=== PATIENT | female | born 1960 | race Caucasian/White ===

== ENCOUNTER 2018-07-20 05:13 | Inpatient (IN) ==
--- NOTE | 2018-06-21 09:37 | Anesthesiology Consultation ---
Date of Service June 21, 2018 Assessment & Plan (1) Encounter for pre-operative examination: Chart Review Chart Review: Acceptable Risk for Surgery and Patient seen in Pre Admission Testing Consults Requested none Note sent to PCP re: elevated A1C and BSG. (06/22). PCP saw patient on 07/12 and increased metformin to 1000mg BID. Patient has also started watching what she eats and exercising regularly. Her BS's have come down from 400's to now being 160s-210s. Has had one reading in 300s since making lifestyle changes. PCP feels she is ok for surgery as long as she continues with dietary change and exercise and increases metformin. Will recheck BS AM day of surgery. Teaching & Discussion Pre-Anesthesia Teaching/Discussion Notes: Instructed NPO after midnight before surgery, except medications with 15 cc of water. Medication instructions provided according to the PAT guidelines. History Surgery Operation Date: 07/20/18 08:50 Proposed Procedures p Right Total Knee Replacement - Adelso Bose MD Height/Weight Height: 5 ft 3 in Weight: 117.2 kg Allergies Allergy/AdvReac Type Severity Reaction Status Date / Time cat dander Allergy Unknown WATERY Verified 06/18/18 08:12 EYES, RUNNY NOSE, SCRATCHY THROAT Medications Home Medications Medication Instructions Recorded Confirmed Last Taken aspirin [Aspir-81] 81 mg PO HS 06/18/18 06/18/18 Unknown bupropion HCl [Wellbutrin SR] 100 mg PO QAM 06/18/18 06/18/18 Unknown citalopram 20 mg PO QAM 06/18/18 06/18/18 Unknown eszopiclone [Lunesta] 2 mg PO HS PRN 06/18/18 06/18/18 Unknown ibuprofen [Advil] 400 mg PO UD PRN 06/18/18 06/18/18 Unknown liraglutide [Victoza 2-Alphonse] 1 dose SUBCUT QPM 06/18/18 06/18/18 Unknown lisinopril 10 mg PO QAM 06/18/18 06/18/18 Unknown lorazepam 0.5 mg PO UD PRN 06/18/18 06/18/18 Unknown multivitamin [Multiple Vitamins] 1 tab PO QPM 06/18/18 06/21/18 Unknown pravastatin 40 mg PO HS 06/18/18 06/18/18 Unknown Past Medical History Medical History Abdominal adhesions Anxiety and depression Diabetes Fatty liver History of diarrhea REPORTS FREQUENT DIARRHEA/NONE CURRENT OR RECENTLY History of fall 2 WEEKS AGO- RIGHT KNEE BUCKLED, HIT HEAD/HAD HEADACHES AFTER (RESOLVED)/D ENIES CONCUSSION (EVALUATED BY PCP OFFICE) Hyperlipidemia Osteoarthritis Sleep apnea CPAP Past Family History Family History Father No problems noted. Mother Family history of uterine cancer Other Family history of breast cancer Past Surgical History Surgical History Family history of reaction to anesthesia MOTHER TROUBLE WAKING UP (NO FURTHER DETAILS) History of abdominal surgery TUMOR AROUND INTESTINES AND OVARY/RESECTION OF History of appendectomy History of bilateral breast reduction surgery History of colonoscopy MOST RECENT THEY WERE UNABLE TO COMPLETE DUE TO SCAR TISSUE/ADHESIONS X4 TOTAL History of ectopic History of gynecologic surgery FALLOPIAN TUBE RECONSTRUCTION History of hysterectomy History of laparoscopy X4 (GYNECOLOGICAL) History of wisdom tooth extraction Past Anesthesia History No Hx of Anesthesia Complications Mother had complications after hysterectomy. Ended up in a coma for a month shortly after. Unsure of the details. Knows that she has alot of health problems. History of PONV No Motion Sickness Screening History of Motion Sickness: Yes (Only on mountains) Social History Smoking Status: Current some day smoker tobacco type: cigarettes Smoking cigarettes per day: "1 OR 2 EVERY OTHER MONTH" Do You Dip or Chew Tobacco: No Hx Alcohol Use: Yes Alcohol type: beer, wine and hard liquor alcohol intake frequency: a few times a month Hx Substance Use: No substance use type: does not use Exercise / Class Metabolic Activity III < 4 Walking/Shop/Light housework (Swim class twice a week. Can climb FOS slowly. Denies CP. Gets mild SOB with stairs. ) Review of Systems Patient denies chest pain, shortness of breath, reflux, cough, wheezing, palpitations. +LOPEZ (mild, only with stairs, not with water aerobics) +joint pain (knees, hands) Physical Exam Vital Signs BP: 124/81 P: 66 R: 14 T: 98.5 SPO2: 99% on RA Constitutional + obese ENMT Thyromental Distance: > or= 3.5 Finger Breadths (4) Mallampati Class: I Neck normal visual inspection, trachea midline and + limited neck extension Respiratory normal respiratory effort Auscultation: lungs clear to auscultation bilaterally Cardiovascular Rate/Rhythm: regular rate and regular rhythm Heart Sounds: no murmur Vessels: no carotid bruit Neurologic moves all extremities Psychiatric Orientation: alert and oriented x 3 Testing Electrocardiogram Date: 06/21/18 Findings: + NSR @ (62) Chest X-Ray Date: 06/21/18 Findings: + NAD FINDINGS: PA and lateral chest radiographs are obtained. No prior studies are available for comparison at the time of dictation. The cardiomediastinal silhouette is unremarkable. The lungs and pleural spaces are clear. There is no pneumothorax. The bony thorax appears intact. IMPRESSION: No active disease in the chest. Laboratory Results 06/21/18 09:57 06/21/18 09:57 Blood Type A Positive 06/21/18 09:57 Antibody Screen NEGATIVE 06/21/18 09:57 PT 10.1 Seconds (9.0-12.0) 06/21/18 09:57 INR 1.0 (0.9-1.1) 06/21/18 09:57 APTT 23.7 Seconds (21.0-31.0) 06/21/18 09:57 Hemoglobin A1c 11.1 % (4.5-5.6) H 06/21/18 09:57
--- NOTE | 2018-06-21 09:46 | PAT Medication Instructions ---
Medication Instructions Date of Service June 21, 2018 Home Medications aspirin [Aspir-81] 81 mg PO HS bupropion HCl [Wellbutrin SR] 100 mg PO QAM citalopram 20 mg PO QAM eszopiclone [Lunesta] 2 mg PO HS PRN ibuprofen [Advil] 400 mg PO UD PRN liraglutide [Victoza 2-Alphonse] 1 dose SUBCUT QPM lisinopril 10 mg PO QAM lorazepam 0.5 mg PO UD PRN multivitamin [Multiple Vitamins] 1 tab PO DAILY pravastatin 40 mg PO HS ASK your surgeon for instructions ibuprofen [Advil] 400 mg PO UD PRN DO NOT take the morning of surgery lisinopril 10 mg PO QAM Take morning of surgery With a small sip of water, OTHERWISE NOTHING TO EAT OR DRINK AFTER MIDNIGHT: bupropion HCl [Wellbutrin SR] 100 mg PO QAM citalopram 20 mg PO QAM lorazepam 0.5 mg PO UD PRN Take evening before surgery aspirin [Aspir-81] 81 mg PO HS eszopiclone [Lunesta] 2 mg PO HS PRN ibuprofen [Advil] 400 mg PO UD PRN liraglutide [Victoza 2-Alphonse] 1 dose SUBCUT QPM lorazepam 0.5 mg PO UD PRN multivitamin [Multiple Vitamins] 1 tab PO DAILY pravastatin 40 mg PO HS Other Notes If you have any questions please call us at [phone] or [phone] or [phone] or [phone]
--- NOTE | 2018-06-21 10:20 | XRay Report ---
TWO VIEW CHEST CLINICAL HISTORY: Preoperative examination. FINDINGS: PA and lateral chest radiographs are obtained. No prior studies are available for compariso n at the time of dictation. The cardiomediastinal silhouette is unremarkable. The lungs and pleural spaces are clear. There is no pneumothorax. The bony thorax appears intact. IMPRESSION: No active disease in the chest. Electronically signed by: Tawanda Moore M.D. 06/21/2018 10:19 AM
[2018-06-21 10:57] LABS: Basophils # (auto) 0.01 K/uL (0-0.2); Basophils % (auto) 0.2 %; Eosinophils % (auto) 2.3 %; Hematocrit (blood only) 41.4 % (37-47); Hemoglobin 14.1 g/dL (12.0-16.0); Immature Granulocytes # (auto) 0.01 K/uL (0.00-0.02); Immature Granulocytes % (auto) 0.2 %; Lymphocytes # (auto) 1.38 K/uL (1.2-3.4); Lymphocytes % (auto) 31.5 %; Mean Corpuscular Hgb Conc 34.1 g/dL (32-36); Mean Corpuscular Volume 86.1 fL (80-100); Mean Platelet Volume 11.6 fL (7.4-10.4); Monocytes # (auto) 0.34 K/uL (0.11-0.59); Monocytes % (auto) 7.8 %; Neutrophils # (auto) 2.54 K/uL (1.4-6.5); Platelet Count 232 K/uL (130-400); RDW Coefficient of Variation 13.1 % (11.5-14.5); RDW Standard Deviation 40.7 fL (36.4-46.3); Red Blood Count 4.81 M/uL (4.2-5.4); White Blood Count 4.38 K/uL (4.8-10.8)
[2018-06-21 11:07] LABS: Partial Thromboplastin Ratio 0.9; Partial Thromboplastin Time 23.7 Seconds (21.0-31.0); Prothrombin Time 10.1 Seconds (9.0-12.0)
[2018-06-21 11:35] LABS: BUN Creatinine Ratio 11.7 (10-20); Calcium 9.2 mg/dl (8.5-10.1); Creatinine Clr Calc Pharmacy 78.7 ml/min; Est GFR (African American) 76.4; Est GFR (Non-African American) 65.9; Potassium 4.6 mmol/L (3.5-5.1)
[2018-06-21 11:40] LABS: Estimated Average Glucose 272 mg/dl; Hemoglobin A1C 11.1 % (4.5-5.6)
[2018-06-21 11:58] LABS: Beta-Hydroxybutyrate 9.15 mg/dl (0.2-2.81)
--- NOTE | 2018-07-14 13:26 | History and Physical Report ---
DATE OF ADMISSION: 07/20/2018 CHIEF COMPLAINT: Bilateral knee pain and discomfort, left side greater than the right. HISTORY OF PRESENT ILLNESS: A 58-year-old female who presents for surgical treatment of her knees. She has a long history of bilateral knee pain and discomfort followed by [facility] in the past. She has been through extensive conservative treatment over the years. She had injections which helped quite a bit and become less successful over time. Pain is global. The more she walks, the more it hurts. It is really limiting her activities. She uses a cane intermittently as a result. She lives by herself and having trouble maintaining any degree of active lifestyle. She would like to proceed with definitive treatment/knee replacement. Of note, we had her scheduled for surgery previously, had rescheduled her due to some diabetes issues. We diagnosed her with diabetes and they have been trying to get her blood glucose under better control. They have been in this some degree and she would like to proceed. PAST MEDICAL HISTORY: 1. Hypertension. 2. Elevated cholesterol. 3. Diabetes. 4. Obesity with a BMI of 46. PAST SURGICAL HISTORY: Previous surgeries include: 1. Appendectomy. 2. Multiple laparoscopies. 3. Tumor removed from her fallopian tubes. 4. Ectopic . 5. Fallopian tube reconstruction. 6. Hysterectomy. 7. [place] teeth surgery. 8. Breast reduction. ALLERGIES: None. CURRENT MEDICINES: 1. Wellbutrin 100 mg a day. 2. Lisinopril 10 mg a day. 3. Citalopram 20 mg a day. 4. Pravastatin 40 mg a day. 5. Victoza. 6. Celebrex. 7. Lorazepam. 8. Lunesta. 9. Baby aspirin. 10. Advil. SOCIAL HISTORY: A 58-year-old female. Lives by herself. Does not smoke. FAMILY HISTORY: Noncontributory. REVIEW OF SYSTEMS: Significant for fairly poorly controlled diabetes. She and her primary care doctor have been working on controlling this over the past month. No history of DVT or PE. No known bleeding problems. PHYSICAL EXAMINATION: GENERAL: Physical examination shows a pleasant middle-aged female, looks to be in pretty good health. HEENT: Benign. NECK: Supple, no lymphadenopathy. LUNGS: Clear to auscultation. HEART: Regular rate and rhythm. ABDOMEN: Soft, nontender, nondistended. EXTREMITIES: Grossly neurovascularly intact except as follows: Examination of both knees reveals patient walks with a waddling gait. She has got a moderate to large soft tissue envelope. Fairly short stature. Examination of the left knee reveals tenderness over the medial joint lines. Small knee effusion. Range of motion 0-125. No instability. No pain with hip motion. She is neurologically intact. Examination of the right knee reveals fairly neutral alignment. Minimal knee effusion. Tender over the medial joint line. Range of motion 0-125. Good straight leg raise. No pain with hip motion. X-RAYS: X-rays of both knees reveal advanced medial compartment arthritis. She has got significant patellofemoral disease as well. She has complete loss of her medial joint space with a little bit of tibial femoral subluxation. She has got osteophytes mostly in the medial compartment. ASSESSMENT: A 58-year-old female, poorly controlled diabetic with advanced bilateral knee degenerative joint disease. She has failed conservative treatment and would like to proceed with knee replacement. We will proceed with one knee at a time. She has been working on getting her blood glucose under better control. They feel like that it has got pretty well optimized. She is at increased risk of infection due to her diabetes and she is aware of that. PLAN: We will proceed with surgical treatment. We are going to proceed with a left knee replacement as that one bothers her most. The risks and benefits of the left total knee replacement were explained to the patient including but not limited to DVT, PE, , infection, neurological injury, vascular injury, bleeding problem, pain, limited range of motion, stiffness, failure to relieve symptoms, incomplete relief of symptoms, need for further surgery in the future, fracture, leg length inequality, nerve palsy, etc. The patient understands and desires to proceed. Informed consent was obtained. We will use insulin sliding scale coverage in the hospital. I did tell her she is at increased risk due to her diabetes, but it sounds like this has been optimized as much as possible. As far as discharge plan, she is hoping to be discharged to home using [facility]. She does live by herself and says she will get some help elsewhere.
--- NOTE | 2018-07-15 22:31 | History and Physical Report ---
DATE OF ADMISSION: 07/20/2018 CHIEF COMPLAINT: Bilateral knee pain and discomfort, right side worse than the left. HISTORY OF PRESENT ILLNESS: This is a 58-year-old female who presents for surgical treatment of her right knee now. She has a long history of bilateral knee pain and discomfort followed by [facility] in the past. She had been through extensive conservative treatment over years. The shots initially helped quite a bit, but they have become less successful. She has not had a shot in a while due to her lack of success. She has become more debilitated by her pain. It is global pain. The more she walks, the more it hurts. It is really limiting her lifestyle. She uses a cane to get around intermittently. She lives by herself and having difficulty maintaining an active lifestyle. She was initially planning on having her left knee done as that was one that was more bothersome initially but the right one has become more bothersome now. She would like to have her right knee replaced. PAST MEDICAL HISTORY: 1. Hypertension. 2. Elevated cholesterol. 3. Diabetes type 2, three years ago. 4. Obesity with a BMI of 46. PAST SURGICAL HISTORY: 1. Appendectomy. 2. Multiple laparoscopies. 3. Tumor removed from the fallopian tubes. 4. Ectopic . 5. Fallopian tube reconstruction. 6. Hysterectomy. 7. [place] teeth surgery. 8. Breast reduction. ALLERGIES: None. CURRENT MEDICINES: 1. Wellbutrin 5 mg. 2. Lisinopril 10 mg. 3. Citalopram 20 mg a day. 4. Pravastatin 40 mg a day. 5. Victoza 1.8 mg a day. 6. Celebrex 100 mg a day. 7. Lorazepam 0.5 mg p.r.n. 8. Lunesta 2 mg p.r.n. 9. Baby aspirin. 10. Advil. SOCIAL HISTORY: A 58-year-old female who lives by herself. She does not smoke. FAMILY HISTORY: Noncontributory. REVIEW OF SYSTEMS: Significant for diabetes. Denies any chest pain or shortness of breath. No history of DVT or PE. Her hemoglobin A1c was 11.1 and over the past month she has been working with her primary care doctors to get this under better control. PHYSICAL EXAMINATION: GENERAL: Reveals a pleasant, middle-aged female. Looks to be in reasonably good health. HEENT: Benign. NECK: Supple. No lymphadenopathy. LUNGS: Clear to auscultation. HEART: Regular rate and rhythm. ABDOMEN: Soft, nontender, nondistended. EXTREMITIES: Grossly neurovascularly intact except as follows: Examination of both knees reveals patient walks a bit of a waddling gait. She has got a moderate to large soft tissue envelope. Examination of the right knee reveals fairly neutral alignment. Minimal effusion. She is tender over the medial joint line. Range of motion 0-125. Good straight leg raise. No pain with hip motion. Examination of left knee reveals tenderness over the medial joint line. Small knee effusion. Range of motion 0-125. No instability. X-RAYS: X-rays of both knees were reviewed. Show advanced bilateral medial compartment DJD. She has advanced patellofemoral arthritis as well. The right knee is a bit actually worse than the left on radiographs. ASSESSMENT: A 58-year-old female with longstanding bilateral knee pain and discomfort. Initially, her left knee was bothered more than the right, but now it is the right more than left. She has failed conservative treatment and would like to proceed with right knee replacement. PLAN: We will take her to the operating room and do a right total knee replacement. The risks and benefits of this procedure were explained to the patient including but not limited to DVT, PE, , infection, neurological injury, vascular injury, bleeding problem, pain, limited range of motion, stiffness, failure to relieve symptoms, incomplete relief of symptoms, need for further surgery in future, fracture, leg length inequality, nerve palsy, dislocation, need for blood transfusion, etc. The patient understands and desires to proceed. Informed consent has been obtained. She does know to hold her lisinopril the morning of surgery. As far as discharge planned, she is planning to be discharged home with [facility]. She lives by herself and she says she will get some friends to assist in her care. Will need insulin sliding scale coverage in the hospital. She will continue to work on blood glucose control.
[2018-07-20] MEDS ORDERED: FAMOTIDINE 20 MG TAB PO SCH (06:00)
[2018-07-20] MEDS ORDERED: ACETAMINOPHEN 500 MG TAB PO SCH (06:00)
[2018-07-20] MEDS ORDERED: CEFAZOLIN 2000MG 2,000 MG/15 ML SYR IV SCH (06:00)
[2018-07-20] MEDS ORDERED: GABAPENTIN 300 MG x 2 PO SCH (06:00)
[2018-07-20] MEDS ORDERED: LR 500ML BOLUS, THEN 15ML/HR IV SCH (06:00)
[2018-07-20] MEDS ORDERED: SCOPOLAMINE 1.5 MG TDSY TD SCH (06:00)
[2018-07-20] MEDS ORDERED: BUPIVACAINE LIPOSOME/PF 266 MG, BUPIVACAINE/EPINEPHRINE 50 ML, SODIUM CHLORIDE 0.9% 30 ... INFIL SCH (06:00)
[2018-07-20] MEDS ORDERED: LR 60ML/HR IV SCH (06:00)
[2018-07-20] MEDS ORDERED: METOCLOPRAMIDE HCL 10 MG TABLET PO SCH (06:00)
[2018-07-20] MEDS ORDERED: BUPIVACAINE 0.5 % 5 MG/1 ML PF 10ML VIAL ONE (06:24)
[2018-07-20] MEDS ORDERED: ROPIVACAINE 0.5% 5 MG/ML 30 ML VIAL ONE (06:25)
[2018-07-20] MEDS ORDERED: EPINEPHrine INJ 1 MG/ML AMP ONE (06:28)
[2018-07-20] MEDS ORDERED: BUPIVACAINE LIPOSOME 1.3% 266 MG/20 ML VIAL ONE (06:28)
[2018-07-20] MEDS ORDERED: BUPIVACAINE 0.25% 30 ML VIAL ONE (06:28)
[2018-07-20] MEDS ORDERED: BACITRACIN INJ 50,000 UNIT VIAL ONE (06:28)
[2018-07-20] MEDS ORDERED: SODIUM CHLORIDE 0.9% PF 50 ML VIAL ONE (06:28)
[2018-07-20] MEDS ORDERED: TRANEXAMIC ACID 1,000 MG **IV Intra-op IV SCH (06:30)
[2018-07-20] MEDS ORDERED: MIDAZOLAM HCL 1 MG/ML 2ML VIAL ONE ×2 (06:35→06:36)
[2018-07-20] MEDS ORDERED: fentaNYL citrate 100 MCG/2 ML VIAL ONE (06:36)
--- NOTE | 2018-07-20 06:52 | History & Physical Bridge Note ---
Date of Service July 20, 2018 History & Physical Bridge Note I have examined the patient, reviewed the History & Physical and in the interval since the performance of the History & Physical I have noted the following changes of clinical significance: no changes noted
[2018-07-20] MEDS ORDERED: ePHEDrine sulfate 50 MG/ML AMP IV PRN (07:09)
[2018-07-20] MEDS ORDERED: ATROPINE SULFATE 0.1 MG/ML 10ML SYR IV PRN (07:09)
[2018-07-20] MEDS ORDERED: ONDANSETRON INJ 2 MG/ML 2 ML VIAL ONE (07:29)
[2018-07-20] MEDS ORDERED: PROPOFOL IV EMULSION 10 MG/ML 20 ML VIAL IV ONE (07:29)
[2018-07-20] MEDS ORDERED: LIDOCAINE HCL 2% 2 ML VIAL/AMP(20MG/ML) INFIL ONE (07:29)
[2018-07-20] MEDS ORDERED: PHENYLEPHRINE 100MCG/ML 5ML SYR ONE (07:29)
--- NOTE | 2018-07-20 08:41 | Post Operative Brief Note ---
Immediate Post Op Note v1 Date of Surgery July 20, 2018 Pre & Post Diagnosis Operation Date: 07/20/18 07:00 Pre-Op Diagnosis: Right Knee Advanced Degenerative Joint Disease Post-Op Diagnosis: Right Knee Advanced Degenerative Joint Disease Procedure Operation Date: 07/20/18 07:00 Actual Procedures p Right Total Knee Arthroplasty(Right) - Adelso Bose MD Surgeon Adelso Bose MD Recep Jacques, PAC Estimated Blood Loss 50 Findings Consistent with Post-Op Diagnosis Fluids 800 cc Specimens Right Knee Drains Connell Catheter (A 16 Citizen [place] connell catheter was inserted by Elsa Lowe RN, without difficulty, clear yellow urine obtained, output to be monitored by Anesthesia.) Anesthesia Type Spinal MAC Complications none Disposition Accompanied Patient To Recovery: No Disposition: Recovery Room
--- NOTE | 2018-07-20 09:07 | Operative Report ---
DATE OF OPERATION: 07/20/2018 SURGEON: Adelso Bose MD FLIGHT AGENT: OLGA Johnson PREOPERATIVE DIAGNOSIS: Right knee degenerative joint disease. POSTOPERATIVE DIAGNOSIS: Right knee degenerative joint disease. PROCEDURE PERFORMED: Right cemented posterior stabilized total knee arthroplasty. COMPLICATIONS: None. ESTIMATED BLOOD LOSS: 50 mL. FLUID REPLACEMENT: 800 mL crystalloid fluid replacement. TOURNIQUET TIME: 57 minutes at 300 mmHg. ANESTHESIA: Spinal with adductor canal block. DRAINS: None. SPECIMENS: Right knee sent for pathology. OPERATIVE INDICATIONS: The patient is a 58-year-old female who has had a several-year history of increasing bilateral knee pain and discomfort. She has been through extensive conservative treatment over the years which just became less successful. It was really limiting her activities. X-rays show bilateral knee DJD. She was initially planned on doing her left knee, but then elected to do her right knee as this has been bothering her a bit more lately. Both knees were similar severity. We did reschedule her surgery at one point in order to optimize her blood glucose control due to her diabetes. OPERATIVE FINDINGS: Operative findings were advanced right knee DJD. She had extensive grade 4 changes in all 3 compartments, most severe in the medial and patellofemoral compartments. She had osteophytes in all 3 compartments. A moderate-sized joint effusion. Moderate soft tissue envelope. OPERATIVE IMPLANTS: Operative implants consisted of: 1. A Biomet Vanguard size 57.5 right posterior stabilized femoral component. 2. A Biomet size 63 tibial tray. 3. A 12 mm posterior stabilized polyethylene insert. 4. A 28 x 8 all poly patella. OPERATIVE PROCEDURE: The patient was taken to the operating room, identified and placed on the operating table in supine position. All contact areas were appropriately padded. IV antibiotics provided by anesthesia team. A spinal anesthetic and adductor canal block had been provided in the holding area. Atkinson catheter was placed in sterile fashion. A right thigh tourniquet was then placed and the right lower extremity was then prepped and draped in usual sterile fashion. The right leg was elevated and exsanguinated with Esmarch and tourniquet was placed at 300 mmHg. An anterior approach of the right knee was then performed through a longitudinal incision centered over the patella. Sharp dissection was carried through subcutaneous tissue down to level of the extensor mechanism. Medial parapatellar arthrotomy incision was made. Some subperiosteal dissection was carried out medially. The fat pad resected from beneath the patellar tendon. The lateral patellofemoral ligament was released. The patella was everted and knee was flexed. The osteophytes were taken off the distal femur. The ACL and PCL were then released from the distal femur and the tibia subluxated anteriorly. The external tibial alignment jig was then placed in the anterior face of the tibia and adjusted 14 mm medially. Proximal tibial cut was made to remove about 2-3 mm of bone from most deficient aspect of the medial tibial plateau. Some small osteophytes were taken off medial and posteromedially. Tibia sized to a size 63. Attention was then drawn to the femur. The distal femur was entered with a sharp drill bit. Intramedullary canal was suctioned. A right 5-degree valgus cutting guide was placed. Distal femoral cutting block was pinned in place. Distal femoral cut was made to take an additional 3 mm of bone off the distal femur. The femur was then sized to a size 57.5. We did downsize this about a half a size. The AP cutting block was pinned parallel to the epicondylar axis, which was 3 degrees of external rotation. The anterior cut, anterior chamfer, posterior cut, posterior chamfer cuts were made. Box cutting guide was placed and adjusted slightly lateral and the box cut was made. The knee was flexed. The remnants of the medial and lateral menisci were excised. The osteophytes were taken off the posterior aspect of the femur. Trial femoral component was placed. Tibial tray was pinned in maximum external rotation and the drill and stem punch were used to create defect in proximal tibia for the tibial tray. The knee was then trialed and the 12 mm insert fit most appropriately. Attention was then drawn to the patella. The patella was cleaned of all soft tissues. Patella thickness measured 16 mm in thickness. It was cut down to about 12. It was sized to a size 28 patella. Lug holes were drilled for a 28 patella. Lateral osteophyte was removed. Patella button was placed. Knee was taken through range of motion and patella tracked nicely with no thumbs test. Attention was then drawn toward placement of permanent components. All trial components removed. Bone plug was placed in the distal femur to limit blood loss. A double batch of Palacos G cement was mixed. A Biomet Vanguard size 57.5 posterior stabilized femoral component, size 63 tibial tray, 12 mm posterior stabilized polyethylene insert, and a 28 x 8 all poly patella then cemented in place. Knee was brought down into full extension until cement hardened. A final cement check was then performed. Pericapsular tissues were injected with a total of 100 mL of a combination of 20 mL of Exparel, 30 mL of normal saline, 50 mL of 0.25% Marcaine with epinephrine. The patient did receive 1 gram of tranexamic acid. The tourniquet was then let down for a tourniquet time of 57 minutes. Hemostasis was assured with use of electrocautery. The extensor mechanism was then closed with a combination of #1 PDS suture and #1 Vicryl suture in [id number] fashion. Extensor mechanism was checked and found to be intact. Subcutaneous tissues were then closed with #2 Dexon suture in a buried interrupted fashion. Skin was closed with skin amy. Leg was then cleaned, dried and a sterile dressing of Xeroform, 4 x 4's, sterile cast padding and Hay bandage were applied. The patient then transferred to the recovery room in stable condition. The patient tolerated the procedure well with no complication. All needle and sponge counts were correct at the end of the operation. I attest to the content of the Intraoperative Record and any orders documented therein. Any exception s are noted below.
--- NOTE | 2018-07-20 09:18 | XRay Report ---
XR knee RT 2V routine HISTORY: 58 years-old Female Surgical Post Op right knee total joint arthroplasty. History of degene rative joint disease. COMPARISON: None available TECHNIQUE: 2 views of the right knee FINDINGS: Right knee total joint arthroplasty with patellar resurfacing. Anterior midline skin amy are note d along with expected postsurgical soft tissue swelling with deep tissue air. Surgical drainage vinicius ter noted. IMPRESSION: Right knee total joint arthroplasty and patella resurfacing with satisfactory alignment. The above report was generated using voice recognition software. It may contain grammatical, syntax o r spelling errors. Electronically signed by: Bo Goncalves M.D. 07/20/2018 9:17 AM
--- NOTE | 2018-07-20 09:20 | Anesthesiology Progress Note ---
Date of Service July 20, 2018 Anesthesia Post Procedure Vital Signs Vital Signs: Temp Pulse Pulse Resp BP Pulse Ox 07/20/18 09:15 36.4 C L 71 20 109/51 L 95 07/20/18 09:05 71 20 112/59 L 96 07/20/18 08:55 77 16 110/53 L 97 07/20/18 08:45 37.1 C 79 20 96/42 L 98 07/20/18 05:58 36.8 C 71 18 108/73 96 Pain Intensity Right Knee: Pain Intensity: 4 Notes Mental Status: alert / awake / arousable and participated in evaluation Patient Amnestic to Procedure: Yes Nausea / Vomiting: adequately controlled Pain: adequately controlled Airway Patency, RR, SpO2: stable & adequate BP & HR: stable & adequate Hydration State: stable & adequate Neuraxial Anesthesia: was administered and sensory block is resolving Anesthetic Complications: no major complications apparent
[2018-07-20] MEDS ORDERED: DEXTROSE 50% 50 ML SYRINGE IV PRN (09:50)
[2018-07-20] MEDS ORDERED: LORazepam 0.5 MG TAB PO PRN (09:50)
[2018-07-20] MEDS ORDERED: ONDANSETRON INJ 2 MG/ML 2 ML VIAL IV PRN (09:50)
[2018-07-20] MEDS ORDERED: PHARMACY GLYCEMIC MGMT CONSULT SCH (09:50)
[2018-07-20] MEDS ORDERED: BISACODYL 10 MG SUPP PR PRN (09:50)
[2018-07-20] MEDS ORDERED: NALOXONE HCL 0.4 MG/1 ML VIAL/CARP IV PRN (09:50)
[2018-07-20] MEDS ORDERED: HYDROmorphone INJ 0.5 MG/0.5 ML SYR IV PRN (09:50)
[2018-07-20] MEDS ORDERED: MULTIVITAMIN TAB PO SCH (09:50)
[2018-07-20] MEDS ORDERED: ESZOPICLONE 2 MG TABLET PO PRN (09:50)
[2018-07-20] MEDS ORDERED: GLUCAGON FOR INJ 1 MG VIAL SQ PRN (09:50)
[2018-07-20] MEDS ORDERED: ALUMINUM/MAGNESIUM SUSP 30 ML UDC PO PRN (09:50)
[2018-07-20] MEDS ORDERED: METOCLOPRAMIDE HCL INJ 5 MG/ML 2 ML VIAL IV PRN (09:50)
[2018-07-20] MEDS ORDERED: GLUCOSE 40% GEL 15 GM TUBE PO PRN (09:50)
[2018-07-20] MEDS ORDERED: MAGNESIUM HYDROXIDE SUSP 30 ML UDC PO PRN (09:50)
[2018-07-20] MEDS ORDERED: CARBOHYDRATES FOR HYPOGLYCEMIA PO PRN (09:50)
[2018-07-20] MEDS ORDERED: GLUCOSE 10 TABS/TUBE PO PRN (09:50)
[2018-07-20] MEDS ORDERED: PHARMACY GLYCEMIC MGMT CONSULT STA (09:50)
[2018-07-20] MEDS: OXYCODONE HCL IR 5 MG TAB (IMMEDIATE RELEASE) PO PRN ×3 (11:14→21:30)
[2018-07-20] MEDS: SODIUM CHLORIDE 0.9% 1000ML 1,000 ML IV SCH ×2 (11:14→20:12)
[2018-07-20] MEDS: KETOROLAC 30 MG/ML VIAL IV SCH ×3 (11:16→23:55)
[2018-07-20] MEDS ORDERED: PNEUMOCOCCAL ADMINISTRATION CHARGE ONE (12:00)
[2018-07-20] MEDS ORDERED: INSULIN GLARGINE SOLOSTAR 100 UNITS/ML 3 ML PEN SC ONE (12:15)
[2018-07-20] MEDS ORDERED: PNEUMOCOCCAL POLYSACCHARIDES 25 MCG/0.5 ML VIAL/SYR IM ONE (12:30)
[2018-07-20] MEDS: INSULIN ASPART 100 UNITS/ML 3 ML PEN SC SCH ×4 (13:26→23:58)
--- NOTE | 2018-07-20 13:48 | Progress Note ---
DATE: 07/20/2018 SUBJECTIVE: A 58-year-old female postop from a right knee replacement. She is doing well. Really no pain yet. No chest pain or shortness of breath. Not feeling dizzy or lightheaded. OBJECTIVE: VITAL SIGNS: Temperature is 36.8. Vital signs stable. GENERAL: Physical examination shows a pleasant, middle-aged female. She is sitting on bed, looks quite comfortable. LUNGS: Clear to auscultation. HEART: Regular rate and rhythm. ABDOMEN: Soft, nontender, nondistended. EXTREMITIES: Grossly neurovascularly intact except as follows: Examination of the right leg reveals the leg to be well aligned. Dressing is clean, dry and intact. She can dorsiflex and plantarflex her foot appropriately. She has got brisk refill. Good distal pulse. X-RAYS: X-rays of the right knee from recovery room reviewed. It shows a right cemented posterior stabilized total knee arthroplasty. Components looked to be in good position. No signs of problems. ASSESSMENT: A 58-year-old female postop from a right knee replacement, doing well. Pain is controlled. She is neurologically intact. PLAN: 1. DVT prophylaxis including thigh-high TEDs, SCDs, and aspirin twice a day. 2. PT/OT. Weight bear as tolerated. Right total knee protocol. 3. Pain control, doing pretty well with current pain regimen. 4. IV antibiotics x24 hours. 5. Diabetes. Fairly poorly controlled up to this point. Will use insulin sliding scale coverage with a pharmacy consult. 6. Disposition: Plan to discharge to home with some home health once adequately recovered.
[2018-07-20] MEDS ORDERED: TRANEXAMIC ACID 1,000 MG in 0.9 % SODIUM CHLORIDE 100 ML IV SCH (16:00)
--- NOTE | 2018-07-20 16:02 | Pharmacy Report ---
Glycemic Control Consultation - Date of Service July 20, 2018 - Scope Scope: Glycemic Pharmacist consulted by Dr Bose on 07-20-18 for glycemic control and to write orders per [facility] inpatient glycemic control protocol - Objective Weight: 116.29 kg Accuchecks BSG (last 24hrs): 07/20/18 07/20/18 07/20/18 05:41 08:49 11:53 POC Glucose 199 H 160 H 216 H HbA1c: Hemoglobin A1c 11.1 % (4.5-5.6) H 06/21/18 09:57 - Recent Pertinent Medications Outpatient Anti-diabetic Regimen: * victoza, metformin 1 gm bid * A1c = 11 % [3-4-19] Risk Factors for Insulin Resistance: * Steroids: none documented * Recent Surgery: POD 0 * Diet: T2DM - Assessment & Plan Assessment & Plan: ASSESSMENT: * 58 year old female now s/p TKA. Type 2 diabetic managed on victoza/metformin at home. Last A1C of 11% indicates poor control. * Did not receive steroids during surgery, however do feel BSGs may trend up due to stress of surgery PLAN FOR INPATIENT GLYCEMIC CONTROL: * Pt is maintained on oral antidiabetic agents as an outpatient * Oral agents are not recommended for inpatient use d/t drug interactions, changing PO intake, and difficulty titrating for acute hyper/hypoglycemia. ADA recommends re-initiating outpatient oral agents 1-2 days prior to discharge if/when appropriate if they were held on admission. * Will hold oral agents for admission and utilize SQ basal bolus insulin regimen which is the recommended regimen for inpatient glycemic control. * Will initiate weight based insulin dosing for insulin camilo patient and titrate based on BSG trends. * Basal insulin * Lantus 20 units x 1 , then scale for tonight * Bolus insulin - add overnight checks * NovoLog per scale ACHS or Q6hrs while NPO * Goal Range: Low 110 mg/dL - High 140 mg/dL * Correction Factor: 20 mg/dL/unit * Nutritional / Prandial insulin per carb ratio of 1 unit per 7 grams CHO consumed * Please note that the plan above was derived based on current level of insulin resistance and hospital stress. These recommendations are appropriate for inpatient admission only. Plan of care upon discharge will need to be reassessed to avoid potential outpatient hypo/hyperglycemia. Thank you.
[2018-07-20] MEDS: CEFAZOLIN 2000MG 2,000 MG/15 ML SYR IV SCH ×2 (16:16→23:55)
[2018-07-20] MEDS: CHECK SCOPOLAMINE PATCH PLACEMENT SCH ×2 (16:17→23:56)
[2018-07-20] MEDS: FERROUS GLUCONATE 324 MG TAB PO SCH (17:21)
[2018-07-20] MEDS: ASCORBIC ACID 500 MG TAB PO SCH (17:22)
[2018-07-20] MEDS: SENNA 8.6 MG TAB PO SCH (20:12)
[2018-07-20] MEDS: TAPENTADOL HCL ER 50 MG TABCR PO SCH (20:12)
[2018-07-20] MEDS: DOCUSATE SODIUM 100 MG CAP PO SCH (20:13)
[2018-07-20] MEDS: PRAVASTATIN SOD 40 MG TAB PO SCH (20:13)
[2018-07-20] MEDS: ASPIRIN 81 MG ECTAB PO SCH (20:13)
[2018-07-20] MEDS: MULTIVITAMIN TAB PO SCH (20:13)
[2018-07-20] MEDS ORDERED: LANTUS PER UNIT CHARGE SQ SCH (21:00)
[2018-07-20] MEDS ORDERED: INSULIN GLARGINE SOLOSTAR 100 UNITS/ML 3 ML PEN SQ SCH (21:00)
[2018-07-20] MEDS ORDERED: LIRAGLUTIDE SQ SCH (21:00)
[2018-07-21] MEDS: INSULIN ASPART 100 UNITS/ML 3 ML PEN SC SCH ×5 (04:08→20:49)
[2018-07-21] MEDS: KETOROLAC 30 MG/ML VIAL IV SCH ×3 (05:21→17:34)
[2018-07-21 06:07] LABS: Hematocrit (blood only) 32.9 % (37-47); Mean Corpuscular Hgb Conc 33.4 g/dL (32-36); Mean Corpuscular Volume 87.5 fL (80-100); Mean Platelet Volume 10.5 fL (7.4-10.4); Platelet Count 176 K/uL (130-400); RDW Coefficient of Variation 12.7 % (11.5-14.5); Red Blood Count 3.76 M/uL (4.2-5.4); White Blood Count 7.77 K/uL (4.8-10.8)
[2018-07-21 06:34] LABS: BUN Creatinine Ratio 12.7 (10-20); Calcium 8.2 mg/dl (8.5-10.1); Creatinine Clr Calc Pharmacy 74.4 ml/min; Est GFR (African American) 71.8; Est GFR (Non-African American) 61.9; Potassium 4.4 mmol/L (3.5-5.1)
[2018-07-21] MEDS: CHECK SCOPOLAMINE PATCH PLACEMENT SCH ×2 (07:38→15:27)
[2018-07-21] MEDS: OXYCODONE HCL IR 5 MG TAB (IMMEDIATE RELEASE) PO PRN ×2 (07:40→14:36)
--- NOTE | 2018-07-21 07:58 | Anesthesiology Progress Note ---
Date of Service July 21, 2018 Anesthesia Post Procedure Vital Signs Vital Signs: Temp Pulse Pulse Pulse Resp BP Pulse Ox 07/21/18 07:32 36.8 C 86 16 125/76 92 07/21/18 04:21 37.1 C 79 16 102/62 93 07/21/18 00:13 37.1 C 75 15 108/68 94 07/20/18 19:49 36.8 C 65 19 128/75 95 07/20/18 15:34 36.6 C 62 18 100/64 97 07/20/18 13:35 65 18 95/57 L 95 07/20/18 12:42 70 18 115/65 91 07/20/18 11:38 69 18 110/68 95 07/20/18 11:20 75 18 113/72 98 07/20/18 09:52 36.8 C 76 18 107/65 98 07/20/18 09:25 36.4 C L 72 20 110/57 L 94 07/20/18 09:15 36.4 C L 71 20 109/51 L 95 07/20/18 09:05 71 20 112/59 L 96 07/20/18 08:55 77 16 110/53 L 97 07/20/18 08:45 37.1 C 79 20 96/42 L 98 Pain Intensity Right Knee: Pain Intensity: 6 Notes Mental Status: alert / awake / arousable and participated in evaluation Patient Amnestic to Procedure: Yes Nausea / Vomiting: adequately controlled Pain: adequately controlled Airway Patency, RR, SpO2: stable & adequate BP & HR: stable & adequate Hydration State: stable & adequate Neuraxial Anesthesia: was administered and sensory block resolved Anesthetic Complications: no major complications apparent
[2018-07-21] MEDS ORDERED: INSULIN GLARGINE SOLOSTAR 100 UNITS/ML 3 ML PEN SC ONE (08:45)
[2018-07-21] MEDS: FERROUS GLUCONATE 324 MG TAB PO SCH ×2 (08:48→17:34)
[2018-07-21] MEDS: DOCUSATE SODIUM 100 MG CAP PO SCH ×2 (08:49→20:44)
[2018-07-21] MEDS: ASCORBIC ACID 500 MG TAB PO SCH ×2 (08:49→17:34)
[2018-07-21] MEDS: CITALOPRAM 20 MG TAB PO SCH (08:49)
[2018-07-21] MEDS: LISINOPRIL 10 MG TAB PO SCH (08:50)
[2018-07-21] MEDS: BuPROPion SR 100 MG TABCR PO SCH (08:50)
[2018-07-21] MEDS: TAPENTADOL HCL ER 50 MG TABCR PO SCH ×2 (08:54→20:48)
[2018-07-21] MEDS: ASPIRIN 81 MG ECTAB PO SCH ×2 (08:56→20:44)
--- NOTE | 2018-07-21 10:18 | Pharmacy Report ---
Pharmacy Glycemic Short Note 2 - Date of Service July 21, 2018 - Glycemic Short BSG Results (Last 24 hours): 07/20/18 07/20/18 07/20/18 11:53 17:15 20:37 Glucose POC Glucose 216 H 109 H 183 H 07/20/18 07/21/18 07/21/18 23:58 04:04 05:15 Glucose 152 H POC Glucose 135 H 167 H 07/21/18 07:58 Glucose POC Glucose 181 H ASSESSMENT: * 58 year old female now s/p TKA. Type 2 diabetic managed on victoza/metformin at home. Last A1C of 11% indicates poor control. * Did not receive steroids during surgery, however do feel BSGs may trend up due to stress of surgery 07/21: * Patient now POD 1 - fasting BSG slightly elevated this am 152 mg/dL (POC - 181 mg/dL) * Patient received total of 48 units of insulin yesterday, of which 30 units were basal insulin. Will continue with Lantus 20 units this AM and with scale for Lantus this evening * BSGs yesterday 216-109-183 mg/dL - unclear to drop in BSG from lunch to dinner, however BSG did trend up last evening to 183 mg/dL * Lunchtime insulin already before [facility] review - patient only at 6 gCHO; will tighten coverage with dinner PLAN FOR INPATIENT GLYCEMIC CONTROL: * Pt is maintained on oral antidiabetic agents as an outpatient * Will consider restarting patient's home metformin today - CrCl ~ 74 ml/min ; appropriate for restart * Basal insulin * Lantus 20 units Qam * Lantus scale for HS For BSG less than 120 mg/dL - no Lantus For BSG 120 - 160 mg/dL - Lantus 10 units For BSG greater than 160 mg/dL - Lantus 15 units * Bolus insulin - tighten * NovoLog per scale ACHS or Q6hrs while NPO * Goal Range: Low 110 mg/dL - High 140 mg/dL * Correction Factor: 20 mg/dL/unit * Nutritional / Prandial insulin per carb ratio of 1 unit per 6 grams CHO consumed PLAN FOR DISCHARGE: * A1C >9% - Patient met with [facility] operations consultant 07/20 and patient reports to noncompliance with Victoza. She met with her PCP prior to admission due to elevated A1C to emphasize importance of taking Victoza as directed and ended up retrialing metformin which has been titrated to current dose. Would recommend continued emphasis on compliance of medications on discharge. Encourage continued low carb diet/exercise and SMBG. Agree with [facility] operations consultant to have patient notify PCP if BSGs persistently remain >160 mg/dL, as additional agent likely warranted. Continue close follow up with PCP outpatient.
--- NOTE | 2018-07-21 16:02 | Progress Note ---
DATE: 07/21/2018 SUBJECTIVE: A 58-year-old female postop day 1 from right knee replacement. Having quite a bit more pain today than yesterday. No chest pain or shortness of breath. Not feeling dizzy or lightheaded. OBJECTIVE: VITAL SIGNS: Temperature is 36.8. Vital signs stable. PHYSICAL EXAMINATION: GENERAL: Shows a pleasant, middle-aged female. She is sitting up in her bed, looks reasonably comfortable. EXTREMITIES: Examination of the right leg reveals the dressing to be clean, dry and intact. Leg is well aligned. She can dorsiflex and plantarflex her foot appropriately. She is neurologically intact. LABORATORY DATA: Hemoglobin 11.0, hematocrit 32.9. Electrolytes are stable. Blood glucoses in the mid-100s to high-100s. ASSESSMENT: A 58-year-old white female postop day #1 from right knee replacement, doing okay. Pain is a bit more today than it was yesterday due to the block wearing off. Her blood glucoses have been under reasonable control. PLAN: 1. DVT prophylaxis including thigh-high TEDS, SCDs, and aspirin twice a day. 2. PT/OT. Weight bear as tolerated. Right total knee protocol. 3. Pain control, doing okay with current pain regimen. She has been a little nauseated and will provide some medicine for that. 4. Disposition: She is planning to be discharged to home with some home health once adequately recovered.
[2018-07-21] MEDS: MULTIVITAMIN TAB PO SCH (20:45)
[2018-07-21] MEDS: SENNA 8.6 MG TAB PO SCH (20:45)
[2018-07-21] MEDS: PRAVASTATIN SOD 40 MG TAB PO SCH (20:45)
[2018-07-21] MEDS ORDERED: INSULIN GLARGINE SOLOSTAR 100 UNITS/ML 3 ML PEN SC SCH (21:00)
[2018-07-22] MEDS ORDERED: INSULIN ASPART 100 UNITS/ML 3 ML PEN SC SCH
[2018-07-22] MEDS: CHECK SCOPOLAMINE PATCH PLACEMENT SCH ×2 (00:19→07:55)
[2018-07-22] MEDS: KETOROLAC 30 MG/ML VIAL IV SCH ×2 (00:20→06:28)
[2018-07-22] MEDS: OXYCODONE HCL IR 5 MG TAB (IMMEDIATE RELEASE) PO PRN ×2 (00:33→06:27)
--- NOTE | 2018-07-22 07:40 | Progress Note ---
DATE: 07/22/2018 SUBJECTIVE: A 58-year-old female postop day 2 from right knee replacement. Doing much better this morning. Pain is under better control. No chest pain or shortness of breath. Not feeling dizzy or lightheaded. Happy to get the bandage off her leg. OBJECTIVE: VITAL SIGNS: Temperature 37.1. Vital signs stable. GENERAL: Physical examination shows a pleasant, middle-aged female. She is lying in bed, looks pretty comfortable. EXTREMITIES: Examination of the right leg reveals the dressing to be clean, dry and intact. Leg is well aligned. She can dorsiflex and plantarflex her foot appropriately. She is neurologically intact. ASSESSMENT: A 58-year-old female postop day 2 from right knee replacement, doing reasonably well. PLAN: 1. DVT prophylaxis including thigh-high TEDs, SCDs, and aspirin twice a day. 2. PT/OT. Weight bear as tolerated. Right total knee protocol. 3. Pain control, doing pretty well with current pain regimen. 4. Disposition: Plan to discharge to home with some home health later today.
[2018-07-22] MEDS: ASPIRIN 81 MG ECTAB PO SCH (07:55)
[2018-07-22] MEDS: ASCORBIC ACID 500 MG TAB PO SCH (07:55)
[2018-07-22] MEDS: LISINOPRIL 10 MG TAB PO SCH (07:55)
[2018-07-22] MEDS: CITALOPRAM 20 MG TAB PO SCH (07:55)
[2018-07-22] MEDS: BuPROPion SR 100 MG TABCR PO SCH (07:56)
[2018-07-22] MEDS: FERROUS GLUCONATE 324 MG TAB PO SCH (07:56)
[2018-07-22] MEDS: DOCUSATE SODIUM 100 MG CAP PO SCH (07:56)
[2018-07-22] MEDS: INSULIN ASPART 100 UNITS/ML 3 ML PEN SC SCH (07:57)
[2018-07-22] MEDS: TAPENTADOL HCL ER 50 MG TABCR PO SCH (08:01)
[2018-07-22] MEDS ORDERED: INSULIN GLARGINE SOLOSTAR 100 UNITS/ML 3 ML PEN SC ONE (09:00)
[2018-07-22] MEDS ORDERED: INSULIN GLARGINE SOLOSTAR 100 UNITS/ML 3 ML PEN SC SCH (09:00)
--- NOTE | 2018-07-26 16:29 | Discharge Summary ---
ADMITTING PHYSICIAN AND SURGEON: Dr. Adelso Bose. ADMITTING DIAGNOSIS: Right knee degenerative joint disease. SURGERY PERFORMED: Right total knee arthroplasty. SECONDARY DIAGNOSES: Hypertension, elevated cholesterol, diabetes, obesity. CONSULTS: None obtained. HISTORY AND PHYSICAL EXAMINATION: Well documented in the patient's chart. HOSPITAL COURSE: The patient was admitted on for 07/20/2108 underwent total knee arthroplasty, tolerated the procedure well. There were no complications. She was transferred to the PACU postoperatively and later to the orthopedic for further care. She was given Ancef for antibiotic prophylaxis, RIAZ stockings, SCDs and aspirin for DVT prophylaxis. Hemoglobin, hematocrit and vital signs were monitored during her hospital stay and remained stable. She did not require blood transfusions. There were no complications. By postoperative day 2 she was tolerating a diabetic diet. Pain was controlled with oral pain medicine. She was participating in physical therapy. Postop day 2 she was discharged home, set up with home health services. She was given printed discharge instructions including new prescriptions for extra strength Tylenol, aspirin and oxycodone. Continue her home medicines with exception of her home dose of aspirin which was changed. Continue physical therapy, weightbearing as tolerated, RIAZ stockings. Follow up approximately 2 weeks postoperatively or sooner if there are any problems or concerns.
== END 2018-07-22 11:35 | disposition home health service (06) | DRG 470 ==
LOC: ASU 05:13 → 3E 08:46